=== PATIENT | female | born 1965 ===

== ENCOUNTER 2024-12-28 18:44 | Emergency (ER) | payer BC ==
[~2024-12-28] VITALS: Ht 170.2 cm; Wt 62.1 kg
[2024-12-28] MEDS ORDERED: ASPIRIN 81 MG CHEW PO ONE (19:00)
[2024-12-28] MEDS ORDERED: NITROGLYCERIN 0.4 MG SUBL SL PRN (19:00)
[2024-12-28 19:25] LABS: BASOPHILS 1.0 % (0.1-1.2); EOSINOPHILS 1.8 % (0.7-5.8); LYMPHOCYTES 34.0 % (19.3-51.7); MCH 29.9 PG (25.6-32.2); MCHC 32.8 g/dL (32.2-35.5); MCV 91.1 fL (79.4-94.8); MONOCYTES 6.1 % (4.7-12.5); NEUTROPHILS 55.5 % (34.0-71.1); RBC 4.18 M/uL (3.93-5.22)
--- OUTSIDE RECORDS SUMMARY | 2024-12-28 19:38 | XMS ---
PreManage Notification: JAIMIE AVILA [employer] Events No recent Security Events currently on file CRITERIA MET - [facility] - 2 Visits in 30 Days - [facility] [place] 3 Facilities in 90 Days CARE PROVIDERS There are no care providers on record at this time. Yony has no Care Guidelines for this patient. Jeny VISIT COUNT (12 MO.) 2 Rachana Hubbard ([place]) [address] - [place] 1 [facility] TOTAL 5 NOTE: Visits indicate total known visits. ED/C VISIT TRACKING (12 MO.) 12/28/2024 18:[address] [facility] TYPE: Emergency COMPLAINT: - CHEST PAIN [facility] Rakesh [place] TYPE: Emergency [facility] DIAGNOSES: 0. Disorientation, unspecified 0. Unspecified convulsions 0. SZ 1. Epilepsy, unspecified, not intractable, without status epilepticus 2. Homelessness unspecified 05/09/2024 19:17 [facility] [place]akes[place] TYPE: Emergency 02/17/2024 18:51 [facility] Pee[place]e Vides TYPE: Emergency DIAGNOSES: 0. Chest pain, unspecified 0. CP 1. Chest pain, unspecified 2. Atherosclerotic heart disease of [place] coronary artery without angina pectoris 2. Chronic kidney disease, unspecified 2. Heart failure, unspecified 2. administration intern (current) use of insulin 2. Other pain medicine physician (current) drug therapy 2. Presence of coronary angioplasty implant and graft 2. Type 2 diabetes mellitus with diabetic chronic kidney disease 2. Type 2 diabetes mellitus with hyperglycemia INPATIENT VISIT TRACKING (12 MO.) 12/14/2024 14:59 [facility] TYPE: Telemetry DIAGNOSES: - Acute on chronic systolic (congestive) heart failure - Allergy to seafood - Atherosclerotic heart disease of [place] coronary artery without angina pectoris - Calculus of gallbladder without cholecystitis without obstruction - Calculus of kidney - Chronic pain syndrome - Coronary atherosclerosis due to calcified coronary lesion - Do not resuscitate - Epilepsy, unspecified, not intractable, without status epilepticus - Esophagitis, unspecified without bleeding - Gastric ulcer, unspecified as acute or chronic, without hemorrhage or perforation - Hyperkalemia - Hypertensive heart disease with heart failure - Hypokalemia - Hypotension, unspecified - Ischemic cardiomyopathy - administration intern (current) use of antithrombotics/antiplatelets - MCFP (current) use of aspirin - MCFP (current) use of insulin - Non-ST elevation (NSTEMI) myocardial infarction - Patient's noncompliance with other medical treatment and regimen due to unspecified reason - Personal history of transient ischemic attack (TIA), and cerebral infarction without residual deficits - Presence of coronary angioplasty implant and graft - Pure hypercholesterolemia, unspecified - Radiographic dye allergy status - Rheumatic tricuspid insufficiency - Type 2 diabetes mellitus with diabetic polyneuropathy - Type 2 diabetes mellitus with hyperglycemia - Type 2 diabetes mellitus with hypoglycemia without coma - Unsheltered homelessness - Unstable angina 05/10/2024 01:19 [facility]) Rakesh [place] TYPE: Telemetry DIAGNOSES: - Acute on chronic systolic (congestive) heart failure - Acute on chronic systolic (congestive) heart failure - Calculus of gallbladder without cholecystitis without obstruction - Calculus of gallbladder without cholecystitis without obstruction - Chest pain, unspecified - Chest pain, unspecified - Diarrhea, unspecified - Diarrhea, unspecified - Encounter for screening for COVID-19 - Encounter for screening for COVID-19 - Hyperkalemia - Hyperkalemia - Hypertensive heart disease with heart failure - Hypertensive heart disease with heart failure - Hypertensive heart disease with heart failure - Ischemic cardiomyopathy - Ischemic cardiomyopathy - MCFP (current) use of aspirin - administration intern (current) use of aspirin - Other stimulant abuse, uncomplicated - Other stimulant abuse, uncomplicated - Personal history of transient ischemic attack (TIA), and cerebral infarction without residual deficits - Personal history of transient ischemic attack (TIA), and cerebral infarction without residual deficits - Presence of coronary angioplasty implant and graft - Presence of coronary angioplasty implant and graft - Pure hypercholesterolemia, unspecified - Pure hypercholesterolemia, unspecified - Radiographic dye allergy status - Radiographic dye allergy status - Retention of urine, unspecified - Retention of urine, unspecified - Rheumatic tricuspid insufficiency - Rheumatic tricuspid insufficiency - Right upper quadrant pain - Right upper quadrant pain - Type 2 diabetes mellitus with hyperglycemia - Type 2 diabetes mellitus with hyperglycemia - Unsheltered homelessness - Unsheltered homelessness - Unspecified abdominal pain - Unspecified convulsions - Unspecified convulsions - Unspecified viral hepatitis C without hepatic coma - Unspecified viral hepatitis C without hepatic coma - Urinary tract infection, site not specified 04/26/2024 22:51 [facility] COMPLAINT: - CHEST PAIN, UNSPECIFIED DIAGNOSES: - Abnormal coagulation profile - Abnormal findings on diagnostic imaging of other specified body structures - Acute kidney failure with tubular necrosis - Acute on chronic systolic (congestive) heart failure - Acute vaginitis - Atherosclerotic heart disease of [place] coronary artery without angina pectoris - Calculus of gallbladder with acute cholecystitis without obstruction - Candidiasis, unspecified - Chest pain, unspecified - Chronic kidney disease, stage 3a - Contact with and (suspected) exposure to infections with a predominantly sexual mode of transmission - Do not resuscitate - Encounter for screening for COVID-19 - Family history of diabetes mellitus - Family history of malignant neoplasm of other genital organs - Homelessness unspecified - Hyperkalemia - Hypotension, unspecified - Ischemic cardiomyopathy - administration intern (current) use of insulin - Nicotine dependence, cigarettes, uncomplicated - Non-pressure chronic ulcer of other part of left foot with unspecified severity - Non-pressure chronic ulcer of other part of right foot with unspecified severity - Old myocardial infarction - Other ascites - Other pain medicine physician (current) drug therapy - Patient's noncompliance with other medical treatment and regimen due to unspecified reason - Patient's other noncompliance with medication regimen for other reason - Personal history of transient ischemic attack (TIA), and cerebral infarction without residual deficits - Postmenopausal bleeding - Presence of coronary angioplasty implant and graft - Pulmonary hypertension, unspecified - Radiographic dye allergy status - Segmental and somatic dysfunction of abdomen and other regions - Segmental and somatic dysfunction of cervical region - Segmental and somatic dysfunction of thoracic region - Trichomonal vulvovaginitis - Type 2 diabetes mellitus with diabetic chronic kidney disease - Type 2 diabetes mellitus with diabetic neuropathy, unspecified - Type 2 diabetes mellitus with foot ulcer - Type 2 diabetes mellitus with hyperglycemia - Type 2 diabetes mellitus with unspecified diabetic retinopathy without macular edema - Unspecified viral hepatitis C without hepatic coma - Ventricular premature depolarization - CHEST PAIN, LEG SWE - LEG PAIN, ABDOMINAL 01/13/2024 11:03 [facility] COMPLAINT: - ACUTE MYOCARDIAL INFARCTION, UNSPECIFIED DIAGNOSES: - Acidosis, unspecified - Acute and subacute hepatic failure with coma - Acute myocardial infarction, unspecified - Acute on chronic systolic (congestive) heart failure - Acute respiratory failure with hypoxia - Anemia in other chronic diseases classified elsewhere - Anorexia - Atherosclerotic heart disease of [place] coronary artery without angina pectoris - Body mass index [BMI] 24.0-24.9, adult - Candidiasis, unspecified - Cellulitis of left lower limb - Chronic kidney disease, unspecified - Depression, unspecified - Hepatomegaly, not elsewhere classified - Hypertensive heart and chronic kidney disease with heart failure and stage 1 through stage 4 chronic kidney disease, or unspecified chronic kidney disease - Hypokalemia - Hypotension, unspecified - Ischemic cardiomyopathy - MCFP (current) use of aspirin - administration intern (current) use of insulin - Old myocardial infarction - Other disorders of phosphorus metabolism - Other disorders of plasma-protein metabolism, not elsewhere classified - Other care home (current) drug therapy - Other persistent atrial fibrillation - Other toxic encephalopathy - Patient's noncompliance with other medical treatment and regimen due to unspecified reason - Personal history of transient ischemic attack (TIA), and cerebral infarction without residual deficits - ST elevation (STEMI) myocardial infarction involving other coronary artery of inferior wall - Streptococcus, group B, as the cause of diseases classified elsewhere - Tobacco use - Type 2 diabetes mellitus with diabetic chronic kidney disease - Type 2 diabetes mellitus with hyperglycemia - Unspecified bacterial pneumonia - OSTEOMYELITIS - STEMI - UNRESPONSIVE [email or web address]
[2024-12-28 19:48] LABS: ALT (SGPT) 52.0 U/L (14-59); AST (SGOT) 30.0 U/L (15-37); GLOMERULAR FILTRATION RATE,EST 75.0 mL/min (>60); PROTEIN, TOTAL 8.1 g/dL (6.4-8.2); UREA NITROGEN 18.0 mg/dL (7-18)
[2024-12-28] MEDS ORDERED: KETOROLAC TROMETHAMINE 30 MG/ML VIAL IV ONE (20:15)
[2024-12-28] MEDS ORDERED: Insulin Regular, Human 100 UNIT/ML ML IV ONE (20:15)
[2024-12-28] MEDS ORDERED: IBLOOD GLUCOSE TEST STRIP 1 EA TEST VI ONE (21:00)
[2024-12-28] MEDS ORDERED: CYCLOBENZAPRINE10 MG PO (21:23)
[2024-12-28] MEDS ORDERED: CYCLOBENZAPRINE HCL 10 MG HOME.PACK PO ONE (21:45)
[2024-12-28 21:51] VITALS: BP 137/89
--- NOTE | 2024-12-28 22:02 | EKG ---
[facility] [address] [facility] [place] [address] Signed Poor data quality, interpretation may be adversely affected Sinus tachycardia Inferior infarct , age undetermined Abnormal ECG No previous ECGs available Confirmed by Farhana Roth MD () on 12/28/2024 10:02:11 PM Electronically Signed By: FARHANA ROTH MD 12/28/242201 PATIENT NAME: JAIMIE AVILA Electrocardiogram DATE OF : 63 PHYSICIAN: FARHANA ROTH MD REPORT #: [id number] REPORT IS CONFIDENTIAL AND NOT TO BE RELEASED WITHOUT AUTHORIZATION
== END 2024-12-28 21:51 | disposition home or self-care (01) ==
LOC: ED 18:44
PROVIDERS: Emergency Medicine
DX: R07.89 Other chest pain (principal); E10.9 Type 1 diabetes mellitus without complications; I25.2 Old myocardial infarction; Z91.041 Radiographic dye allergy status
CPT/HCPCS: 36415; 71045; 80053; 83735; 84484; 85025; 93005; 93010; 96374; 96375; 99285-25; J1815; J1885